=== PATIENT | female | born 1980 | race Caucasian/White ===

== ENCOUNTER 2017-03-17 09:29 | Emergency (ER) | payer SELFPAY ==
[2017-03-17 09:38] VITALS: BP 127/96; BMI 32.9
--- NOTE | 2017-03-17 10:01 | DR.GENAD ---
HPI - HPI Comment HPI Comment: PATIENT LOSS VOICE LAST NIGHT. VIOCE IMPROVING. POSITIVE DYSPHAGIA. - Complaint/Symptoms Chief Complaint Doctors Comments: LOSS OF VOICE, SORE THROAT TIMES 4 DAYS. Chief Complaint:: SORE THROAT, LOSS OF VOICE Self Treatment fo Chief Complaint: GARGLE WARM SALT WATER - Nurses notes reviewed Nurses Notes Review: Yes - Source History Provided: Patient - Mode of Arrival Mode of Arrival: Ambulatory - Timing Onset of Chief Complaint: 03/13/17 Came on: Suddenly - Duration Duration: Constant Duration: Days - Severity Severity: Moderate PMH - PMH Past Medical History: No Past Surgical History: Yes Surgical History: Past Surgical History Comment: LEFT TEMPANIC - Family History History of Family Medical Conditions: Yes Family Medical History: Diabetes Mellitus, MA, Coronary Artery Disease, Hypertension - Social History Does patient currently use any type of tobacco product: Yes Have you used tobacco products in the last 12 months: Yes Type of Tobacco Use: Cigarettes How many years tobacco product used: 14 Does any household member use tobacco: Yes Alcohol Use: None Do you use any recreational Drugs:: No Lives With: Family Lives Where: Home - infectious screening In the last 2 months have you had wt loss of >10#?: NO Have you had fever, night sweats or hemotysis?: No Have you traveled outside the country in the last 6 months?: No Isolation: Standard ROS - Review of Systems Constitutional: No Symptoms Reported Eyes: No Symptoms Reported ENTM: No Symptoms Reported, Throat Pain (VOICE LOST.) Respiratoy: No Symptoms Reported Cardiovascular: No Symptoms Reported Gastrointestinal/Abdominal: No Symptoms Reported Genitourinary: No Symptoms Reported Neurological: No Symptoms Reported Musculoskeletal: No Symptoms Reported Integumentary: No Symptoms Reported Hematologic/Lymphatic: No Symptoms Reported Endocrine: No Symptoms Reported All Other Systems: Reviewed and Negative PE - Vital Signs Vitals: Temperature 97.5 F Pulse Rate 93 Respiratory Rate 16 Blood Pressure 127/96 O2 Sat by Pulse Oximetry 98 - General Limitations: No Limitations General Appearance: Alert - Head Head Exam: Normal Inspection - Eyes Eye exam: Normal Appearance - ENT ENT Exam: Normal External Ear Exam External Ear Exam: Normal External Inspection TM/Canal Exam: Bilateral Normal Nose Exam: Normal Nose Exam Mouth Exam: Normal Inspection Throat Exam: Tonsillar Erythema, Tonsillomegaly. negative: Tonsillar Exudate - Neck Neck Exam: Trachea Midline - Chest Chest Inspection: Symmetric Chest Wall Rise - Respiratory Respiratory Exam: Normal Lung Sounds Bilat Respiratory Exam: Bilateral Clear to Auscultation - Cardiovascular Cardiovascular Exam: Regular Rate, Normal Rhythm, Normal Heart Sounds - Abdominal Exam Abdominal Exam: Normal Inspection - Extremities Extremities Exam: Normal Inspection - Back Back Exam: Normal Inspection - Neurologic Neurological Exam: Alert, Oriented X3 - Psychiatric Psychiatric Exam: Normal Affect, Normal Mood - Skin Skin Exam: Normal Color MDM - Differential Diagnosis Differential Diagnosis: BRONCHITIS, LARYNGITIS, PHARYNGITIS Course - Education/Counseling Education/Counseling: Patient, Education Educated On: Diagnosis, Needs for Follow Up - Diagnosis Discharge Problem: Laryngitis, Bronchitis - Discharge Plan Disposition: HOME, SELF-CARE Condition: Stable Prescriptions: Azithromycin [Zithromax Z-Rivera 5-day] 1 dose PO DAILY #6 tab Promethazine W/Codeine [PHENERGAN W/CODEINE 6.25mg/10mg (5mL) *] 10 ml PO Q6H PRN #120 ml PRN Reason: Cough - Follow ups/Referrals Follow ups/Referrals: [facility],None [Primary Care Provider] - 2 days Russel Gordon [STAFF PHYSICIAN] - 2 days - Instructions Instructions: Laryngitis, [id number], Acute Bronchitis, [id number] Additional Instructions: RETURN TO ED IF WORSE.
--- NOTE | 2017-03-17 10:24 | RAD ---
HISTORY: Chest pain Study: Chest one view Comparison: None Findings: The trachea is midline. The cardiac silhouette is unremarkable. The lungs are clear without focal infiltrate or effusion. The bony thorax is unremarkable. IMPRESSION: 1. No acute cardiopulmonary disease. Reported By:
== END 2017-03-17 11:25 | disposition home or self-care (01) ==
LOC: ER 09:45
DX: J04.0 Acute laryngitis (principal); J40 Bronchitis, not specified as acute or chronic
CPT/HCPCS: 71010; 99282

== ENCOUNTER 2018-04-08 11:36 | Emergency (ER) | payer SELFPAY ==
[2018-04-08 11:42] VITALS: BP 119/80; BMI 29.9
== END 2018-04-08 12:30 | disposition left against medical advice (07) ==
LOC: ER 12:28
DX: R10.84 Generalized abdominal pain (principal)
CPT/HCPCS: 99281